=== PATIENT | female | born 1965 ===

== ENCOUNTER 2018-10-09 11:41 | Emergency (ER) | payer OTHER ==
[2018-10-09 11:47] VITALS: BMI 32.2
[2018-10-09 11:48] VITALS: BP 127/67; PULSE 81; RESP 16; TEMP 98.3; O2SAT 98
--- NOTE | 2018-10-09 13:08 | ED PDOC ---
HPI: General Adult Time Seen by Provider: 10/09/18 11:54 Chief Complaint (Provider): Sent by PMD History Per: Patient History/Exam Limitations: no limitations Onset/Duration Of Symptoms: Days Additional Complaint(s): 52 year old female with no medical history presents to the ED after being seen by Dr. Alesha Shoemaker. Patient states she was sent to the hospital for endometrial CA work-up. She states she has not had her menses since age 51. A few weeks ago she developed pelvic cramping with vaginal bleeding which prompted visit with Dr. Shoemaker, She was sent for pelvic US on 09/25/2018. Today she obtained the results which demonstrated patient has thickened endometrium. Additionally she reports vaginal bleeding and cramping a few days ago but denies vaginal bleeding or pain today. Past Medical History Reviewed: Historical Data, Nursing Documentation, Vital Signs Vital Signs: Last Vital Signs Temp 98.3 F 10/09/18 11:46 Pulse 81 10/09/18 11:46 Resp 16 10/09/18 11:46 BP 127/67 10/09/18 11:46 Pulse Ox 98 10/09/18 11:46 - Medical History PMH: No Chronic Diseases - Surgical History Surgical History: Cholecystectomy - Family History Family History: States: Unknown Family Hx - Social History Alcohol: None Drugs: Denies - Home Medications Home Medications: Ambulatory Orders Medication Instructions Recorded Nitrofurantoin Macrocrystals 100 mg PO BID #14 cap 11/25/17 [Macrobid] Phenazopyridine [Pyridium] 200 mg PO BID PRN #4 tab 11/25/17 - Allergies Allergies/Adverse Reactions: Allergies Allergy/AdvReac Type Severity Reaction Status Date / Time No Known Allergies Allergy Verified 11/25/17 13:47 Review of Systems ROS Statement: Except As Marked, All Systems Reviewed And Found Negative Constitutional: Negative for: Fever, Chills, Sweats, Weakness, Malaise Cardiovascular: Negative for: Chest Pain Respiratory: Negative for: Cough, Shortness of Breath, SOB with Exertion Gastrointestinal: Negative for: Nausea, Vomiting, Abdominal Pain Genitourinary Female: Negative for: Vaginal Discharge, Vaginal Bleeding, Pelvic Pain Physical Exam - Reviewed Nursing Documentation Reviewed: Yes Vital Signs Reviewed: Yes - Physical Exam Appears: Positive for: Well, Non-toxic, No Acute Distress Head Exam: Positive for: ATRAUMATIC, NORMAL INSPECTION, NORMOCEPHALIC Skin: Positive for: Normal Color, Warm, DRY Eye Exam: Positive for: EOMI, Normal appearance, PERRL ENT: Positive for: Normal ENT Inspection Neck: Positive for: Normal, Painless ROM Cardiovascular/Chest: Positive for: Regular Rate, Rhythm Respiratory: Positive for: CNT, Normal Breath Sounds Gastrointestinal/Abdominal: Positive for: Normal Exam, Bowel Sounds (normactive ), Soft. Negative for: Tenderness Pelvic Exam: Positive for: External Exam Normal Back: Positive for: Normal Inspection Extremity: Positive for: Normal ROM Neurological/Psych: Positive for: Awake, Alert, Normal Tone, Oriented - ECG O2 Sat by Pulse Oximetry: 98 Medical Decision Making Medical Decision Making: Dr. alesha Shoemaker called to clarify course of treatment indicated for patient. Spoke to DAKOTAH Piña of Dr. Shoemaker. wants patient to follow-up as outpatient not in emergency room since patient does not have medical insurance. MD wants patient to apply for ailyn care and be [facility] for further work-up to r/o endometrial CA. --discussed plan with patient in Peruvian. Patient instructed to obtain ailyn care application prior to discharge.[facility]erral to [facility] as well as [facility] provided. No further work-up needed in ED. Patient states she understands and agrees with plan. Disposition - Clinical Impression Clinical Impression: Abnormal uterine bleeding - Patient ED Disposition Is Patient to be Admitted: No Counseled Patient/Family Regarding: Diagnosis - Disposition Referrals: [facility] [Outside] [facility] [Outside] [facility] [Outside] Disposition: Routine/Home Disposition Time: 13:00 Condition: GOOD Additional Instructions: Applique para [facility] y maryse latia avinash en [facility]. Instructions: Bleeding After Menopause Forms: [employer] ([place]ian) - POA Present On Arrival: None
== END 2018-10-09 14:00 | disposition home or self-care (01) ==
LOC: SUPCPDRO 11:41 → H.ER 11:41
DX: N93.9 Abnormal uterine and vaginal bleeding, unspecified (principal)